=== PATIENT | male | born 1960 | race Caucasian/White ===

== ENCOUNTER → 2018-07-18 | Outpatient (CLI) | payer OTHER ==
[~2018-07-18] MED LIST: DIAZEPAM 10 MG TABLET. ONE; HEPARIN for SUB-Q USE 5,000 UNIT/ML VIAL. ONE; HYDROcodone/APAP 5/325MG 1 TAB TABLET ONE; IOHEXOL 300 MG/ML 100ML VIAL. ONE; IV NORMAL SALINE 500ML BAG 500 ML ONE; LIDOCAINE 1% Multi-Dose 50 ML VIAL. ONE; MIDAZOLAM HCL/PF 2 MG/2 ML VIAL. ONE; ceFAZolin SODIUM 1 GM VIAL ONE; fentaNYL PF VIAL 100 MCG/2 ML VIAL ONE
--- NOTE | 2018-07-18 22:54 | PCVCINTER ---
EXAM: 1. INTRAVASCULAR ULTRASOUND OF THE INFERIOR VENA CAVA 2. INTRAVASCULAR ULTRASOUND OF THE RIGHT COMMON AND EXTERNAL ILIAC AND COMMON FEMORAL VEINS 3. INTRAVASCULAR ULTRASOUND OF THE LEFT COMMON AND EXTERNAL ILIAC AND COMMON FEMORAL VEINS 4. INFERIOR VENA CAVA AND BILATERAL ILIOFEMORAL VENOGRAPHY 5. RIGHT EXTERNAL ILIAC VEIN STENT PLACEMENT. 6. LEFT EXTERNAL ILIAC VEIN STENT PLACEMENT. 7. LEFT COMMON FEMORAL VEIN ANGIOPLASTY. 8. LEFT MAIN FEMORAL VEIN ANGIOPLASTY. 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 Leg pain and swelling. Failed conservative therapy including medical grade compression stockings for at least 3 months. Venous hypertension chronic. PROCEDURE: Procedure and risks of IVC and ileofemoral venography and intravascular ultrasound, and venous stent placement as appropriate including bleeding, infection, venous thrombosis, stent migration/thrombosis, contrast-induced nephropathy requiring dialysis, stroke, and were discussed with the patient and consent obtained. Patient was given IV antibiotics. The patient's right neck and chest was prepped and draped in the normal sterile fashion. IV conscious sedation was used throughout the procedure with appropriate monitoring. Ultrasound was used to interrogate the neck and showed the internal jugular vein to be patent. A spot ultrasound image of the internal jugular vein was saved. Under ultrasound guidance access into the right internal jugular vein was obtained and an 8F sheath was placed to the level of the lower IVC. Catheter was placed into the lower IVC and IVC cavogram performed. Catheter was placed to the level of the right common femoral vein and right iliofemoral venogram obtained. Catheter was placed to the level of the left common femoral vein and left iliofemoral venogram was obtained. The 8 Occitan intravascular ultrasound catheter was then placed to the level of the right common femoral vein and intravascular ultrasound evaluation of the right common femoral, right external iliac, and right common iliac veins was accomplished in a pull-back fashion. The 8 Occitan intravascular ultrasound catheter was then placed to the level of the left common femoral vein and intravascular ultrasound evaluation of the left common femoral, left external iliac, and left common iliac veins was accomplished in a pull-back fashion. Intravascular ultrasound evaluation of the inferior vena cava was then accomplished in a pullback fashion. An 18 x 90 Wallstent was deployed across the area of extrinsic compression in the right external iliac vein with subsequent dilatation up to 14 mm. Follow-up intravascular ultrasound was performed. Angioplasty of the left common femoral vein and upper left main femoral vein was carried out with 12 and 14 mm [employer] catheters. Following this a 14 x 80 Smart control stent was deployed into the left external iliac vein with subsequent dilatation to 14 mm. Follow-up intravascular ultrasound was performed. Sheath was removed and hemostasis obtained using manual pressure. FINDINGS: IVC INTRAVASCULAR ULTRASOUND: Normal vessel: 13.4 x 18.8 mm. Area = 195.4 sq. mm. RIGHT COMMON ILIAC VEIN INTRAVASCULAR ULTRASOUND: Normal vessel: 11.7 x 14.4 mm. Area = 132.6 sq. mm. RIGHT EXTERNAL ILIAC VEIN INTRAVASCULAR ULTRASOUND: Normal vessel: 8.8 x 11.5 mm. Area = 81.3 sq. mm. Minimum vessel diameter: 2.5 x 10.9 mm. Area = 27.0 sq. mm. Post-Intervention diameter: 11.3 x 13.2 mm. Area = 124.5 sq. mm. RIGHT COMMON FEMORAL VEIN INTRAVASCULAR ULTRASOUND: Normal vessel: 9.3 x 15.5 mm. Area = 108.6 sq. mm. LEFT COMMON ILIAC VEIN INTRAVASCULAR ULTRASOUND: Normal vessel: 13.9 x 18.4 mm. Area = 213.6 sq. mm. LEFT EXTERNAL ILIAC VEIN INTRAVASCULAR ULTRASOUND: Normal vessel: 5.0 x 11.9 mm. Area = 58.2 sq. mm. Minimum vessel diameter: 3.7 x 59.0 mm. Area = 24.0 sq. mm. Post-Intervention diameter: 11.7 x 12.9 mm. Area = 124.0 sq. mm. LEFT COMMON FEMORAL VEIN INTRAVASCULAR ULTRASOUND: Normal vessel: 5.6 x 7.0 mm. Area = 33.5 sq. mm. VENOGRAPHY: INFERIOR VENA CAVA: Vessel is patent without significant stenosis, scarring, or extensive compression. RIGHT COMMON ILIAC VEIN: Vessel is patent without significant stenosis, scarring, or extensive compression. RIGHT EXTERNAL ILIAC VEIN: Diffuse narrowing upper vessel due to extrinsic compression results in 70% area stenosis. Following stent placement vessel again shows good patency. RIGHT COMMON FEMORAL VEIN: Vessel is patent without significant stenosis, scarring, or extensive compression. LEFT COMMON ILIAC VEIN: Vessel is patent without significant stenosis, scarring, or extensive compression. LEFT EXTERNAL ILIAC VEIN: Diffuse narrowing throughout the external iliac vein with additional stenosis in its midportion is flow-limiting. Following stent placement this vessel shows good patency throughout. LEFT COMMON FEMORAL VEIN: Moderately extensive chronic fibrotic appearing thrombus throughout this vessel and extending into the upper portion of the main femoral vein. Following angioplasty the common femoral vein and main femoral vein show improvement in flow is noted with increase in the vessel diameter. Moderate residual stenosis mid to upper common femoral vein is noted however. IMPRESSION: Hemodynamically significant extrinsic compression upper portion right external iliac vein was treated with stent placement with good patency restored. Diffuse narrowing throughout the left external iliac vein was treated with stent placement with good patency restored. Chronic changes of deep venous thrombosis in scarring in the left common femoral vein and upper main femoral vein were treated with angioplasty with improvement in patency. LOC:OFFICE
== END | disposition home or self-care (01) ==
LOC: PCVCINTER 08:49
PROVIDERS: ATTEND Nuclear Medicine Nuclear Cardiology
DX: I87.1 Compression of vein (principal); I87.302 Chronic venous hypertension (idiopathic) without complications of left lower extremity; I82.402 Acute embolism and thrombosis of unspecified deep veins of left lower extremity; I25.10 Atherosclerotic heart disease of native coronary artery without angina pectoris; J44.9 Chronic obstructive pulmonary disease, unspecified; Z86.718 Personal history of other venous thrombosis and embolism; E78.5 Hyperlipidemia, unspecified; M10.9 Gout, unspecified; Z85.828 Personal history of other malignant neoplasm of skin; G47.30 Sleep apnea, unspecified; Z90.49 Acquired absence of other specified parts of digestive tract; Z98.890 Other specified postprocedural states; Z82.3 Family history of stroke; Z83.3 Family history of diabetes mellitus; Z87.891 Personal history of nicotine dependence; Z79.899 Other long term (current) drug therapy
CPT/HCPCS: 36012; 37238; 37239; 37248; 37249; 37252; 37253; 75822; 75825; 76937; 99152; 99153; C1725; C1751; C1753; C1769; C1876; C1894; J0690; J1644; J2250; J3010; J7040; Q9967

== ENCOUNTER → 2018-10-18 | Outpatient (CLI) | payer OTHER ==
[~2018-10-18] MED LIST changes: -HEPARIN for SUB-Q USE 5,000 UNIT/ML VIAL. ONE; +HEPARIN for SUB-Q USE 5,000 UNIT/ML VIAL. SQ ONE; -HYDROcodone/APAP 5/325MG 1 TAB TABLET ONE; -ceFAZolin SODIUM 1 GM VIAL ONE
--- NOTE | 2018-10-18 18:15 | PCVCINTER ---
EXAM: 1. INTRAVASCULAR ULTRASOUND OF THE INFERIOR VENA CAVA 2. INTRAVASCULAR ULTRASOUND OF THE RIGHT COMMON AND EXTERNAL ILIAC AND COMMON FEMORAL VEINS 3. INTRAVASCULAR ULTRASOUND OF THE LEFT COMMON AND EXTERNAL ILIAC AND COMMON FEMORAL VEINS 4. INFERIOR VENA CAVA AND BILATERAL ILIOFEMORAL VENOGRAPHY 5. RIGHT EXTERNAL ILIAC VEIN ANGIOPLASTY. 6. LEFT EXTERNAL ILIAC VEIN ANGIOPLASTY. 7. LEFT COMMON FEMORAL VEIN ANGIOPLASTY. 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 Leg pain and swelling. Failed conservative therapy including medical grade compression stockings for at least 3 months. Venous hypertension chronic. PROCEDURE: Procedure and risks of IVC and ileofemoral venography and intravascular ultrasound, and venous stent placement as appropriate including bleeding, infection, venous thrombosis, stent migration/thrombosis, contrast-induced nephropathy requiring dialysis, stroke, and were discussed with the patient and consent obtained. Patient was given IV antibiotics. The patient's right neck and chest was prepped and draped in the normal sterile fashion. IV conscious sedation was used throughout the procedure with appropriate monitoring. Ultrasound was used to interrogate the neck and showed the internal jugular vein to be patent. A spot ultrasound image of the internal jugular vein was saved. Under ultrasound guidance access into the right internal jugular vein was obtained and an 8F sheath was placed to the level of the lower IVC. Catheter was placed into the lower IVC and IVC cavogram performed. Catheter was placed to the level of the right common femoral vein and right iliofemoral venogram obtained. Catheter was placed to the level of the left common femoral vein and left iliofemoral venogram was obtained. The 8 [place]an intravascular ultrasound catheter was then placed to the level of the right common femoral vein and intravascular ultrasound evaluation of the right common femoral, right external iliac, and right common iliac veins was accomplished in a pull-back fashion. The 8 [place] intravascular ultrasound catheter was then placed to the level of the left common femoral vein and intravascular ultrasound evaluation of the left common femoral, left external iliac, and left common iliac veins was accomplished in a pull-back fashion. Intravascular ultrasound evaluation of the inferior vena cava was then accomplished in a pullback fashion. Angioplasty of the right external iliac vein was performed using a 14 x 4 PowerFlex TIRE ADJUSTER catheter. Angioplasty of the left external iliac vein was performed using a 14 x 4 PowerFlex TIRE ADJUSTER catheter. Angioplasty of the left common femoral vein was performed using a 14 x 4 PowerFlex TIRE ADJUSTER catheter. Sheath was removed and hemostasis obtained using manual pressure. FINDINGS: IVC INTRAVASCULAR ULTRASOUND: Normal vessel: 15.4 x 20.5 mm. Area = 260.9 sq. mm. RIGHT COMMON ILIAC VEIN INTRAVASCULAR ULTRASOUND: Normal vessel: 14.1 x 15.9 mm. Area = 181.1 sq. mm. RIGHT EXTERNAL ILIAC VEIN INTRAVASCULAR ULTRASOUND: Normal vessel: 13.0 x 14.0 mm. Area = 147.7 sq. mm. Minimum vessel diameter: 8.7 x 10.9 mm. Area = 80.2 sq. mm. Post-Intervention diameter: 12.5 x 14.2 mm. Area = 141.6 sq. mm. RIGHT COMMON FEMORAL VEIN INTRAVASCULAR ULTRASOUND: Normal vessel: 11.4 x 16.9 mm. Area = 156.7 sq. mm. LEFT COMMON ILIAC VEIN INTRAVASCULAR ULTRASOUND: Normal vessel: 12.3 x 21.4 mm. Area = 248.7 sq. mm. LEFT EXTERNAL ILIAC VEIN INTRAVASCULAR ULTRASOUND: Normal vessel: 12.9 x 14.1 mm. Area = 150.9 sq. mm. Minimum vessel diameter: 9.8 x 11.5 mm. Area = 91.3 sq. mm. Post-Intervention diameter: 11.0 x 13.9 mm. Area = 123.6 sq. mm. LEFT COMMON FEMORAL VEIN INTRAVASCULAR ULTRASOUND: Normal vessel: 12.0 x 16.4 mm. Area = 156.5 sq. mm. Minimum vessel diameter: 5.4 x 9.4 mm. Area = 48.1 sq. mm. Post-Intervention diameter: 6.7 x 9.8 mm. Area = 55.5 sq. mm. VENOGRAPHY: INFERIOR VENA CAVA: Vessel is patent without significant stenosis, scarring, or extrinsic compression. RIGHT COMMON ILIAC VEIN: Vessel is patent without significant stenosis, scarring, or extrinsic compression. RIGHT EXTERNAL ILIAC VEIN: Mild/moderate restenosis mid right external iliac vein within prior stent. Following angioplasty good patency restored. RIGHT COMMON FEMORAL VEIN: Vessel is patent without significant stenosis, scarring, or extrinsic compression. LEFT COMMON ILIAC VEIN: Vessel is patent without significant stenosis, scarring, or extrinsic compression. LEFT EXTERNAL ILIAC VEIN: Mild/moderate stenosis mid external iliac vein within prior stent. Following antibiotic good patency restored. LEFT COMMON FEMORAL VEIN: Moderate scarring from prior episodes of deep venous thrombosis. No obvious acute clot. Moderate residual narrowing mid/upper common femoral vein. Following angioplasty there has been improvement in luminal diameter although mild residual narrowing persists. IMPRESSION: [id number] restenosis within right and left external iliac vein stents was treated as above with good patency restored. Scarring again seen from prior episodes of DVT left common femoral vein was treated with angioplasty with mild improvement. LOC:[id number]
== END | disposition home or self-care (01) ==
LOC: PCVCINTER 10:53
PROVIDERS: ATTEND Nuclear Medicine Nuclear Cardiology
DX: I87.2 Venous insufficiency (chronic) (peripheral) (principal); I87.302 Chronic venous hypertension (idiopathic) without complications of left lower extremity; I87.1 Compression of vein; I25.10 Atherosclerotic heart disease of native coronary artery without angina pectoris; I82.402 Acute embolism and thrombosis of unspecified deep veins of left lower extremity; J44.9 Chronic obstructive pulmonary disease, unspecified; E78.5 Hyperlipidemia, unspecified; M10.9 Gout, unspecified; Z85.828 Personal history of other malignant neoplasm of skin; G47.30 Sleep apnea, unspecified; Z90.49 Acquired absence of other specified parts of digestive tract; Z98.890 Other specified postprocedural states; Z83.3 Family history of diabetes mellitus; Z82.3 Family history of stroke; Z87.891 Personal history of nicotine dependence; Z79.899 Other long term (current) drug therapy
CPT/HCPCS: 36012; 37248; 37249; 37252; 37253; 75822; 75825; 76937; 99152; 99153; C1725; C1751; C1753; C1769; C1894; J1644; J2250; J3010; J7040; Q9967